=== PATIENT | male | born 2000 | race Two or more races ===

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

== ENCOUNTER 2019-01-01 23:59 | Emergency (ER) | payer OTHER, SELFPAY ==
[~2019-01-01] VITALS: Ht 167.6 cm; Wt 72.7 kg
[2019-01-02] MEDS ORDERED: DOXYCYCLINE HYCLATE 100 MG TAB PO ONE (01:15)
[2019-01-02] MEDS ORDERED: LIDOCAINE 1% SDV 5 ML VIAL DILUENT ONE (01:15)
[2019-01-02] MEDS ORDERED: cefTRIAXone SOD 250 MG VIAL (J0696) IM ONE (01:15)
[2019-01-02] MEDS ORDERED: KETOROLAC 30 MG/ML VIAL (J1885) IM ONE (01:15)
[2019-01-02] MEDS ORDERED: DOXY100C37 PO (02:08)
[2019-01-02] MEDS ORDERED: IBUP-1022 PO (02:08)
[2019-01-02 02:18] VITALS: BP 114/64
[2019-01-02 02:19] LABS: CHLAMYDIA DNA AMPLIFICATION POSITIVE (NEGATIVE); GC DNA AMPLIFICATION NEGATIVE (NEGATIVE)
== END 2019-01-02 02:22 | disposition home or self-care (01) ==
LOC: M ED 23:59
DX: N45.1 Epididymitis (principal); F17.210 Nicotine dependence, cigarettes, uncomplicated
CPT/HCPCS: 87491; 87591; 96372; 99283; J0696; J1885

== ENCOUNTER 2019-01-23 02:11 | Emergency (ER) | payer OTHER ==
[~2019-01-23] VITALS: Ht 167.6 cm; Wt 72.7 kg
[~2019-01-23 02:11] MED LIST changes: +IBUP-1022 PO
[2019-01-23 03:30] VITALS: BP 132/66
== END 2019-01-23 03:42 | disposition home or self-care (01) ==
LOC: M ED 02:11
DX: N45.1 Epididymitis (principal)

== ENCOUNTER 2019-02-03 12:05 | Emergency (ER) | payer OTHER ==
[~2019-02-03] VITALS: Ht 170.2 cm; Wt 72.7 kg
[2019-02-03 12:06] VITALS: BP 135/69
== END 2019-02-03 13:20 | disposition left against medical advice (07) ==
LOC: M ED 12:05
DX: N39.9 Disorder of urinary system, unspecified (principal); Z53.21 Procedure and treatment not carried out due to patient leaving prior to being seen by health care provider

== ENCOUNTER 2019-03-02 19:03 | Emergency (ER) | payer OTHER ==
[~2019-03-02] VITALS: Ht 167.6 cm; Wt 66.9 kg
[2019-03-02 19:03] VITALS: BP 134/79
[2019-03-02] MEDS ORDERED: ACETAMINOPHEN 500 MG TAB PO ONE (21:30)
[2019-03-02 23:26] LABS: CHLAMYDIA DNA AMPLIFICATION NEGATIVE (NEGATIVE); GC DNA AMPLIFICATION NEGATIVE (NEGATIVE)
[2019-03-06 00:06] LABS: HSV IgM TYPES 1&2 <0.91 Ratio (0.00-0.90)
== END 2019-03-02 22:16 | disposition left against medical advice (07) ==
LOC: M ED 19:03
DX: R10.2 Pelvic and perineal pain (principal); R30.0 Dysuria; N50.819 Testicular pain, unspecified; F17.210 Nicotine dependence, cigarettes, uncomplicated; Z20.2 Contact with and (suspected) exposure to infections with a predominantly sexual mode of transmission; Z53.29 Procedure and treatment not carried out because of patient's decision for other reasons

== ENCOUNTER → 2019-11-28 | Outpatient (REF) | payer OTHER ==
[2019-11-28 17:52] LABS: APPEARANCE, URINE CLEAR (CLEAR); BACTERIA, URINE AUTO NEGATIVE (NEGATIVE); BILIRUBIN, URINE AUTO NEGATIVE (NEGATIVE); BLOOD, URINE BLOOD NEGATIVE (NEGATIVE); COLOR, URINE YELLOW (YELLOW); GLUCOSE, URINE (UA) AUTO NEGATIVE (NEGATIVE); KETONE, URINE AUTO NEGATIVE (NEGATIVE); LEUKOCYTE ESTERASE, URINE AUTO NEGATIVE (NEGATIVE); NITRITE, URINE AUTO NEGATIVE (NEGATIVE); PROTEIN, URINE AUTO NEGATIVE (NEGATIVE); RBC, URINE AUTO 0 /HPF (0-3); SPECIFIC GRAVITY URINE AUTO 1.012 (1.002-1.035); SQUAMOUS EPITHELIAL CELL UR AU 0 /HPF (0-6); WBC, URINE AUTO 0 /HPF (0-3)
== END ==
LOC: M SMT 16:41
PROVIDERS: ATTEND Nurse Practitioner Women's Health
DX: N50.819 Testicular pain, unspecified (principal)

== ENCOUNTER 2020-02-18 22:57 | Emergency (ER) | payer OTHER ==
[~2020-02-18] VITALS: Ht 170.2 cm; Wt 68.2 kg
[2020-02-18] MEDS ORDERED: BOOSTRIX/ADACEL VACCINE (DIPHTH/PERTUSS/ACELL/TETANUS) 0.5ML SYR IM ONE (23:30)
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
[2020-02-19] MEDS ORDERED: KETO10TAB PO (01:09)
[2020-02-19] MEDS ORDERED: KETOROLAC 30 MG/ML 1ML VIAL IV ONE (01:15)
[2020-02-19 01:45] VITALS: BP 135/68
== END 2020-02-19 01:48 | disposition home or self-care (01) ==
LOC: M ED 22:57
DX: S01.01XA Laceration without foreign body of scalp, initial encounter (principal); Y00.XXXA Assault by blunt object, initial encounter; Y92.89 Other specified places as the place of occurrence of the external cause; F17.200 Nicotine dependence, unspecified, uncomplicated
CPT/HCPCS: 12001; 70450; 72125; 90471; 90715; 96372; 99284; J1885

== ENCOUNTER 2020-02-25 09:54 | Emergency (ER) | payer OTHER ==
[~2020-02-25] VITALS: Ht 170.2 cm; Wt 63.4 kg
[2020-02-25 09:54] VITALS: BP 135/78
== END 2020-02-25 11:27 | disposition left against medical advice (07) ==
LOC: M ED 09:54
DX: Z53.21 Procedure and treatment not carried out due to patient leaving prior to being seen by health care provider (principal)

== ENCOUNTER 2020-02-25 11:44 | Emergency (ER) | payer OTHER ==
[~2020-02-25] VITALS: Ht 170.2 cm; Wt 63.3 kg
[2020-02-25 13:02] VITALS: BP 128/70
== END 2020-02-25 13:03 | disposition home or self-care (01) ==
LOC: M ED 11:44
DX: Z48.02 Encounter for removal of sutures (principal); F17.200 Nicotine dependence, unspecified, uncomplicated

== ENCOUNTER → 2020-07-27 | Outpatient (CLI) | payer OTHER ==
--- NOTE | 2020-07-28 08:41 | REP ---
INDICATION: EPIDIDYMITIS,DISORDER OF MALE GENITAL ORGANS, UNSP COMPARISON: 09/05/2018 TECHNIQUE: Miller scale and color Doppler evaluation using linear and curved array transducer with color Doppler evaluation. FINDINGS: The testicles are normal in contour, size, echogenicity, vascularity and overall appearance. There is no evidence for intratesticular mass lesion, testicular infectious/inflammatory process, or torsion. Few scattered incidental bilateral parenchymal calculi noted. No obvious hydroceles or varicoceles are identified. The right epididymis is enlarged and demonstrates increased vascularity. Right testicle measures 4.0 x 2.1 x 2.9 cm. Left testicle measures 4.1 x 2.0 x 2.8 cm. IMPRESSION: Findings suggest epididymitis and correlation/follow-up is recommended. <Electronically signed by Phoenix Davalos > 07/28/20 [id number]
== END ==
LOC: M RAD 11:45
PROVIDERS: ATTEND Nurse Practitioner Women's Health
DX: N50.9 Disorder of male genital organs, unspecified (principal); N45.1 Epididymitis

== ENCOUNTER 2022-10-22 21:18 | Emergency (ER) | payer OTHER ==
[~2022-10-22] VITALS: Ht 172.7 cm; Wt 70.6 kg
[~2022-10-22 21:18] MED LIST changes: +DOXY-443 PO; -DOXY100C PO; +DOXY100C3 PO; -DOXY100C37 PO; +LEVO1TAB39 PO; -LEVO500T3 PO
[2022-10-22 22:50] LABS: BASO % 0.1 % (0.0-1.0); EOS # 0.1 10^3/uL (0.0-0.5); EOS % 0.4 % (0.0-3.0); HEMOGLOBIN 14.9 g/dl (13.5-17.5); LYMPH # 3.9 10^3/uL (1.5-5.0); LYMPH % 32.3 % (24.0-44.0); MEAN CORPUSCULAR HEMOGLOBIN 26.9 pg (27.0-33.0); MEAN CORPUSCULAR HGB CONC 32.4 g/dl (32.0-36.5); MONO # 0.8 10^3/uL (0.0-0.8); MONO % 6.8 % (2.0-8.0); NEUTROPHILS # 7.2 10^3/uL (1.5-8.5); NEUTROPHILS % 60.1 % (36.0-66.0); PLATELET COUNT, AUTOMATED 232 10^3/uL (150-450); RED BLOOD COUNT 5.54 10^6/uL (4.30-6.10); WHITE BLOOD COUNT 11.9 10^3/uL (4.0-10.0)
[2022-10-22] MEDS ORDERED: NS 1,000 ML IV ONE (23:05)
[2022-10-22] MEDS ORDERED: KETOROLAC 30 MG/ML 1ML VIAL IV ONE (23:05)
[2022-10-22 23:10] LABS: BLOOD UREA NITROGEN 8 MG/DL (9-23); CALCIUM LEVEL 9.2 MG/DL (8.5-10.1); CARBON DIOXIDE LEVEL 25 MMOL/L (20-31); CHLORIDE LEVEL 107 MMOL/L (98-107); CK-MB VALUE MASS < 1.0 NG/ML (<3.6); CPK CREATINE PHOSPHOKINASE 191 U/L (46-171); CREATININE FOR GFR 0.88 MG/DL (0.70-1.30); GLOMERULAR FILTRATION RATE > 60.0 (>60); GLUCOSE, FASTING 113 MG/DL (60-100); MB/CK RELATIVE INDEX 0.52 (< OR =4); POTASSIUM SERUM 4.6 MMOL/L (3.5-5.1); SODIUM LEVEL 141 MMOL/L (136-145)
[2022-10-22 23:11] LABS: RSV AMPLIFICATION NEGATIVE (NEGATIVE)
[2022-10-23] MEDS ORDERED: IBUP-1022 PO (00:44)
[2022-10-23 00:57] VITALS: BP 136/83
== END 2022-10-23 01:04 | disposition home or self-care (01) ==
LOC: M ED 21:18
DX: R07.89 Other chest pain (principal); R55 Syncope and collapse
CPT/HCPCS: 71045; 80048; 82550; 82553; 85025; 87631; 93005; 96374; 99284; J1885

== ENCOUNTER 2023-10-13 15:39 | Inpatient (IN) | payer MEDICAID, OTHER ==
[~2023-10-13] VITALS: Ht 170.2 cm; Wt 75.3 kg
[2023-10-13 17:17] LABS: HEMATOCRIT 47.7 % (42.0-52.0); HEMOGLOBIN 15.7 g/dl (13.5-17.5); MEAN CORPUSCULAR HEMOGLOBIN 28.1 pg (27.0-33.0); MEAN CORPUSCULAR HGB CONC 32.9 g/dl (32.0-36.5); MEAN CORPUSCULAR VOLUME 85.5 fl (80.0-96.0); PLATELET COUNT, AUTOMATED 242 10^3/uL (150-450); RED BLOOD COUNT 5.58 10^6/uL (4.30-6.10); WHITE BLOOD COUNT 8.3 10^3/uL (4.0-10.0)
[2023-10-13 17:34] LABS: ETHYL ALCOHOL (ETHANOL) 0.104 % (0.000-0.010)
[2023-10-13 17:36] LABS: ALBUMIN 3.9 G/DL (3.2-5.2); ALKALINE PHOSPHATASE 89 U/L (46-116); ALT/SGPT 14 U/L (7.0-40); AST/SGOT 15 U/L (<34); BILIRUBIN,DIRECT 0.3 MG/DL (<0.4); BILIRUBIN,TOTAL 0.8 MG/DL (0.3-1.2); BLOOD UREA NITROGEN 6 MG/DL (9-23); CALCIUM LEVEL 9.4 MG/DL (8.5-10.1); CARBON DIOXIDE LEVEL 28 MMOL/L (20-31); CHLORIDE LEVEL 108 MMOL/L (98-107); CREATININE FOR GFR 0.96 MG/DL (0.70-1.30); GLOMERULAR FILTRATION RATE > 60.0 (>60); GLUCOSE, FASTING 88 MG/DL (60-100); SALICYLATE LEVEL < 3.0 MG/DL (<30); SODIUM LEVEL 142 MMOL/L (136-145); TOTAL PROTEIN 7.4 G/DL (5.7-8.2)
[2023-10-13 17:38] LABS: THYROID STIMULATING HORMONE 0.497 uIU/ML (0.55-4.78)
[2023-10-13 17:43] LABS: AMPHETAMINES LEVEL URINE NEGATIVE (NEGATIVE); BARBITURATES URINE NEGATIVE (NEGATIVE)
[2023-10-13 17:44] LABS: BENZODIAZEPINES URINE NEGATIVE (NEGATIVE); COCAINE METABOLITE URINE NEGATIVE (NEGATIVE); METHADONE URINE NEGATIVE (NEGATIVE); OPIATES URINE NEGATIVE (NEGATIVE); PHENCYCLIDINE URINE NEGATIVE (NEGATIVE)
[2023-10-13 17:47] LABS: CANNABINOIDS URINE POSITIVE (NEGATIVE)
[2023-10-13] MEDS ORDERED: HOME MED LIST COMPLETE! XX SCH (18:35)
[2023-10-13] MEDS ORDERED: IBUPROFEN 400MG TAB PO PRN (19:45)
[2023-10-13] MEDS ORDERED: MAALOX 30 ML SUSP *UDC PO PRN (19:45)
[2023-10-13] MEDS ORDERED: MOM 30ML SUSPENSION UDC PO PRN (19:45)
[2023-10-13] MEDS: traZODone 50 MG TAB PO PRN (22:40)
[2023-10-13] MEDS ORDERED: LORazepam 2 MG TAB PO PRN (22:45)
[2023-10-13 23:00] VITALS: BP 132/83; TEMP 97.7; O2SAT 99
[2023-10-13] MEDS: NICOTINE 21MG/24HR 1 EA TRANSDERMAL TD PRN (23:07)
[2023-10-13] MEDS: THIAMINE 100 MG TAB PO SCH (23:07)
[2023-10-14 06:16] VITALS: BP 127/73; TEMP 98.9; O2SAT 98
[2023-10-14 07:00] VITALS: BP 127/73
[2023-10-14] MEDS: MULTIVITAMINS/MINERALS THERAP 1 TAB PO SCH (08:54)
[2023-10-14] MEDS: FOLIC ACID 1MG TAB PO SCH (08:54)
[2023-10-14] MEDS: FLUoxetine 10 MG CAP PO SCH (11:41)
[2023-10-14 14:20] VITALS: BP 142/79; TEMP 98; O2SAT 100
[2023-10-14 15:00] VITALS: BP 142/79
[2023-10-15 06:20] VITALS: BP 141/82; TEMP 97.4; O2SAT 100
[2023-10-15 14:24] VITALS: BP 138/88; TEMP 98.4; O2SAT 96
[2023-10-15] MEDS: ACETAMINOPHEN TAB 650MG DOSE (2X325MG) PO PRN (22:47)
[2023-10-16 06:23] VITALS: BP 120/71; TEMP 97.7; O2SAT 97
[2023-10-16] MEDS: FLUoxetine 20MG CAP PO SCH (09:24)
[2023-10-16 17:18] VITALS: BP 145/83; TEMP 97.7; O2SAT 99
[2023-10-16] MEDS: diphenhydrAMINE 25MG CAP PO PRN (20:54)
[2023-10-17 06:07] VITALS: BP 145/80; TEMP 97.1; O2SAT 98
[2023-10-17] MEDS ORDERED: NICO21PAT TD (08:05)
[2023-10-17] MEDS ORDERED: TRAZ-252 PO (08:05)
[2023-10-17] MEDS ORDERED: DIPH-435 PO (08:05)
[2023-10-17] MEDS ORDERED: FLUO20CA22 PO (08:05)
== END 2023-10-17 11:29 | disposition home or self-care (01) | DRG 755 ==
LOC: M ED 15:39 → EEVIPCON 19:41 → M ED INP 19:41 → M PSY 22:26
PROVIDERS: ADMIT Student in an Organized Health Care Education/Training Program; ATTEND Student in an Organized Health Care Education/Training Program
DX: F43.10 Post-traumatic stress disorder, unspecified (principal); F84.0 Autistic disorder; F10.10 Alcohol abuse, uncomplicated; Z79.899 Other long term (current) drug therapy; F17.200 Nicotine dependence, unspecified, uncomplicated; F32.89 Other specified depressive episodes; Z65.3 Problems related to other legal circumstances

== ENCOUNTER → 2023-10-30 | Outpatient (REF) | payer MEDICAID ==
[~2023-10-30] MED LIST changes: +DIPH-435 PO; +DOXY-323 PO; -DOXY-443 PO; +FLUO20CA22 PO; +NICO21PAT TD; +TRAZ-252 PO
[2023-10-30 18:32] LABS: Trichomonas vaginalis (AMP) NOT DETECTED (NEGATIVE)
[2023-10-30 18:33] LABS: HEMOGLOBIN A1c 5.1 % (4.0-6.0)
[2023-10-30 18:49] LABS: ALBUMIN 3.6 G/DL (3.2-5.2); ALKALINE PHOSPHATASE 74 U/L (46-116); ALT/SGPT 21 U/L (7.0-40); AST/SGOT 18 U/L (<34); BILIRUBIN,TOTAL 0.4 MG/DL (0.3-1.2); BLOOD UREA NITROGEN 14 MG/DL (9-23); CALCIUM LEVEL 8.7 MG/DL (8.5-10.1); CARBON DIOXIDE LEVEL 27 MMOL/L (20-31); CHLORIDE LEVEL 111 MMOL/L (98-107); CHOLESTEROL LEVEL 189 MG/DL (<200); CHOLESTEROL RISK RATIO 2.37 (<5); CREATININE FOR GFR 0.93 MG/DL (0.70-1.30); GLOMERULAR FILTRATION RATE > 60.0 (>60); GLUCOSE, FASTING 74 MG/DL (60-100); HDL CHOLESTEROL 79.5 MG/DL (>40); LDL CHOLESTEROL 79.7 MG/DL (<100); NON-HDL-C 109.5 MG/DL; POTASSIUM SERUM 4.1 MMOL/L (3.5-5.1); SODIUM LEVEL 144 MMOL/L (136-145); TRIGLYCERIDES LEVEL 149 MG/DL (<150)
[2023-10-30 18:51] LABS: THYROID STIMULATING HORMONE 0.518 uIU/ML (0.55-4.78)
[2023-10-30 18:54] LABS: TOTAL 25(OH) VITAMIN D 8.1 NG/ML (20.0-100.0)
[2023-10-30 18:56] LABS: GC DNA AMPLIFICATION NEGATIVE (NEGATIVE)
== END ==
LOC: M LAB REF 16:00
PROVIDERS: ATTEND Nurse Practitioner Family
DX: Z11.9 Encounter for screening for infectious and parasitic diseases, unspecified (principal); F10.10 Alcohol abuse, uncomplicated; E66.3 Overweight; E55.9 Vitamin D deficiency, unspecified

== ENCOUNTER 2024-02-01 12:55 | Emergency (ER) | payer OTHER, SELFPAY ==
[~2024-02-01] VITALS: Ht 170.2 cm; Wt 84.1 kg
[~2024-02-01 12:55] MED LIST changes: +FLUO-365 PO; -FLUO20CA22 PO
[2024-02-01 12:56] VITALS: TEMP 97.1
[2024-02-01 14:23] LABS: APPEARANCE, URINE CLEAR (CLEAR); BACTERIA, URINE AUTO NEGATIVE (NEGATIVE); BASO % 0.3 % (0.0-1.0); BILIRUBIN, URINE AUTO NEGATIVE (NEGATIVE); BLOOD, URINE BLOOD 1+ (NEGATIVE); COLOR, URINE YELLOW (YELLOW); EOS # 0.1 10^3/uL (0.0-0.5); EOS % 0.4 % (0.0-3.0); GLUCOSE, URINE (UA) AUTO NEGATIVE (NEGATIVE); HEMATOCRIT 46.5 % (42.0-52.0); HEMOGLOBIN 15.2 g/dl (13.5-17.5); KETONE, URINE AUTO NEGATIVE (NEGATIVE); LEUKOCYTE ESTERASE, URINE AUTO NEGATIVE (NEGATIVE); LYMPH # 3.5 10^3/uL (1.5-5.0); LYMPH % 29.9 % (24.0-44.0); MEAN CORPUSCULAR HEMOGLOBIN 27.7 pg (27.0-33.0); MEAN CORPUSCULAR HGB CONC 32.7 g/dl (32.0-36.5); MEAN CORPUSCULAR VOLUME 84.7 fl (80.0-96.0); MONO # 0.8 10^3/uL (0.0-0.8); MONO % 6.8 % (2.0-8.0); NEUTROPHILS # 7.2 10^3/uL (1.5-8.5); NEUTROPHILS % 61.7 % (36.0-66.0); NITRITE, URINE AUTO NEGATIVE (NEGATIVE); PLATELET COUNT, AUTOMATED 234 10^3/uL (150-450); PROTEIN, URINE AUTO NEGATIVE (NEGATIVE); RBC, URINE AUTO 2 /HPF (0-3); RED BLOOD COUNT 5.49 10^6/uL (4.30-6.10); SPECIFIC GRAVITY URINE AUTO 1.015 (1.002-1.035); SQUAMOUS EPITHELIAL CELL UR AU 0 /HPF (0-6); UROBILINOGEN, URINE AUTO 0.2 mg/dL (0.0-2.0); WBC, URINE AUTO 1 /HPF (0-3); WHITE BLOOD COUNT 11.6 10^3/uL (4.0-10.0)
[2024-02-01 14:57] LABS: ALBUMIN 3.9 G/DL (3.2-5.2); ALKALINE PHOSPHATASE 85 U/L (46-116); ALT/SGPT 25 U/L (7.0-40); AST/SGOT 14 U/L (<34); BILIRUBIN,DIRECT < 0.1 MG/DL (<0.4); BILIRUBIN,TOTAL 0.3 MG/DL (0.3-1.2); BLOOD UREA NITROGEN 14 MG/DL (9-23); CARBON DIOXIDE LEVEL 27 MMOL/L (20-31); CHLORIDE LEVEL 111 MMOL/L (98-107); CREATININE FOR GFR 0.99 MG/DL (0.70-1.30); GLOMERULAR FILTRATION RATE > 60.0 (>60); GLUCOSE, FASTING 96 MG/DL (60-100); POTASSIUM SERUM 4.1 MMOL/L (3.5-5.1); SODIUM LEVEL 140 MMOL/L (136-145)
[2024-02-01 15:49] LABS: CK-MB VALUE MASS < 1.0 NG/ML (<3.6)
[2024-02-01 15:50] LABS: CPK CREATINE PHOSPHOKINASE 148 U/L (46-171); MB/CK RELATIVE INDEX 0.67 (< OR =4)
[2024-02-01] MEDS: ONDANSETRON 4MG 2ML VIAL IV ONE (17:47)
[2024-02-01] MEDS: KETOROLAC 30 MG/ML 1ML VIAL IV ONE (17:47)
[2024-02-01] MEDS ORDERED: ONDA-282 PO (18:24)
[2024-02-01 18:30] VITALS: BP 155/105; O2SAT 98
== END 2024-02-01 18:42 | disposition home or self-care (01) ==
LOC: M ED 12:55
DX: R07.89 Other chest pain (principal); F17.210 Nicotine dependence, cigarettes, uncomplicated; F12.10 Cannabis abuse, uncomplicated; F10.10 Alcohol abuse, uncomplicated; Z79.899 Other long term (current) drug therapy
CPT/HCPCS: 71046; 80053; 81001; 82248; 82550; 82553; 84484; 85025; 93005; 96374; 99284; J1885; J2405

== ENCOUNTER → 2024-02-09 | Outpatient (REF) | payer SELFPAY, OTHER ==
[~2024-02-09] MED LIST changes: +ONDA-282 PO
[2024-02-09 18:51] LABS: THYROID STIMULATING HORMONE 1.293 uIU/ML (0.55-4.78)
[2024-02-09 18:52] LABS: FREE T4 1.12 NG/DL (0.89-1.76)
== END ==
LOC: M LAB REF 16:09
PROVIDERS: ATTEND Nurse Practitioner Family
DX: R94.6 Abnormal results of thyroid function studies (principal)

== ENCOUNTER 2024-03-23 01:19 | Emergency (ER) | payer OTHER, SELFPAY ==
[2024-03-23 01:26] VITALS: TEMP 98.9
[2024-03-23 03:17] VITALS: BP 129/83; O2SAT 100
== END 2024-03-23 03:19 | disposition home or self-care (01) ==
LOC: M ED 01:19
DX: R19.7 Diarrhea, unspecified (principal); F17.210 Nicotine dependence, cigarettes, uncomplicated; F12.10 Cannabis abuse, uncomplicated; F10.10 Alcohol abuse, uncomplicated; Z79.899 Other long term (current) drug therapy

== ENCOUNTER 2024-06-27 07:01 | Emergency (ER) | payer MEDICAID, SELFPAY ==
[~2024-06-27] VITALS: Ht 172.7 cm; Wt 87.5 kg
[~2024-06-27 07:01] MED LIST changes: -DOXY-323 PO; +DOXY-441 PO
[2024-06-27 07:03] VITALS: BP 138/77; TEMP 100.3; O2SAT 94
[2024-06-27] MEDS ORDERED: ALBU8.5H INH (10:32)
[2024-06-27] MEDS: ACETAMINOPHEN 500 MG TAB PO ONE (10:42)
== END 2024-06-27 10:42 | disposition home or self-care (01) ==
LOC: M ED 07:01
DX: R50.9 Fever, unspecified (principal); B97.4 Respiratory syncytial virus as the cause of diseases classified elsewhere; F17.210 Nicotine dependence, cigarettes, uncomplicated; Z79.51 Long term (current) use of inhaled steroids